=== PATIENT | female | born 1970 | race Caucasian/White ===

== ENCOUNTER 2018-11-27 00:11 | Emergency (ER) | payer BC ==
--- NOTE | 2018-11-27 00:21 | ED Physician Documentation ---
History of Present Illness - Stated complaint Stated Complaint: L LEG SWELLING - Chief complaint Chief Complaint: Neuro - History obtained from History obtained from: Patient, Family - History of Present Illness Timing: How many days ago (3-4) Improved by: nothing Worsened by: no apparent exacerbating factors - Additonal information Additional information: Visiting from [place], flew in on . Patient c/o generalized pain, particularly of all four extremities, dyspnea, episodic confusion and disorien tation, tremulousness that is "worse than usual" (per patient). She says she "was sick before getting on the plane" (she is vague in trying to describe what she means by "sick", but says she had nausea, vomiting. She also says she has had "these episodes" in the past, that she refers to them as "allergies", and that "they usually pass" and thus she has not seen a doctor or been to an ED for these symptoms. She says her hands and feet are swollen, but when we both look at her arms and legs, she acknowledges that they are not swollen and says "well, they were swollen". Review of Systems Constitutional: reports: Myalgias, Fatigue. denies: Fever, Chills, Sweats Eyes: reports: Reviewed and negative Throat: denies: Sore throat Cardiac: reports: Pedal edema (resolved). denies: Chest pain / pressure, Palpitations Respiratory: reports: Dyspnea. denies: Cough, Wheezing : denies: Dysuria, Frequency Skin: denies: Rash Musculoskeletal: reports: Extremity pain (generalized pain/aches, including all four extremities). denies: Neck pain, Back pain Neurologic: reports: Generalized weakness, Confused, Headache. denies: Focal weakness, Numbness, Near syncope, Syncope, Altered mental status, Head injury, LOC Psychiatric: reports: Insomnia. denies: Depressed, Suicidal, Hallucinations, Delusions, Anxiety PD PAST MEDICAL HISTORY - Past Medical History Past Medical History: Yes Other Past Medical History: vertigo - Past Surgical History Past Surgical History: No - Present Medications Home Medications: Ambulatory Orders Medication Instructions Recorded Confirmed Nitrofurantoin Monohyd/M-Cryst 100 mg PO BID #9 capsule 11/27/18 [Macrobid 100 mg Capsule] Sertraline HCl [Zoloft] 100 mg PO DAILY 11/27/18 11/27/18 - Allergies Allergies/Adverse Reactions: Allergies Allergy/AdvReac Type Severity Reaction Status Date / Time No Known Drug Allergies Allergy Verified 11/27/18 00:20 - Living Situation Living Situation: reports: With spouse/s.o. Living Arrangement: reports: At home PD ED PE NORMAL - Vitals Vital signs reviewed: Yes - General General: Alert and oriented X 3, No acute distress, Well developed/nourished - HEENT HEENT: Atraumatic, PERRL, EOMI, Ears normal, Moist mucous membranes, Pharynx benign - Neck Neck: Supple, no meningeal sign, No bony TTP - Cardiac Cardiac: RRR, No murmur, No gallop, No rub - Respiratory Respiratory: No respiratory distress, Clear bilaterally - Abdomen Abdomen: Soft, Non tender - Back Back: No CVA TTP, No spinal TTP - Derm Derm: Normal color, Warm and dry, No rash - Extremities Extremities: No deformity, No tenderness to palpate, Normal ROM s pain, No edema - Neuro Neuro: Alert and oriented X 3, perforator 2-12 intact, No motor deficit, No sensory deficit, Normal speech Eye Opening: Spontaneous Motor: Obeys Commands Verbal: Oriented GCS Score: 15 PD ED PE EXPANDED - Psych Psych: Other (tangential; frequently needs to be redirected/refocused to question being asked) Results - Vitals Vitals: Vital Signs - 24 hr 11/27/18 11/27/18 11/27/18 00:14 01:56 02:52 Temperature 36.5 C Heart Rate 80 81 70 Respiratory 16 20 18 Rate Blood Pressure 111/78 123/78 127/63 O2 Saturation 100 99 99 Oxygen O2 Source Room air - Labs Labs: Laboratory Tests 11/27/18 11/27/18 11/27/18 01:15 01:25 01:25 WBC 6.8 RBC 4.21 Hgb 12.9 Hct 38.1 MCV 90.5 MCH 30.6 MCHC 33.8 RDW 13.2 Plt Count 251 MPV 8.2 Neut # (Auto) 4.0 Lymph # (Auto) 2.2 [place] # (Auto) 0.5 Eos # (Auto) 0.1 Baso # (Auto) 0.0 Absolute Nucleated RBC 0.01 Nucleated RBC % 0.1 Sodium 140 Potassium 2.9 L Chloride 102 Carbon Dioxide 27 Anion Gap 11.0 BUN 15 Creatinine 0.6 Estimated GFR (MDRD) 107 Glucose 96 Calcium 9.1 Phosphorus 3.6 Magnesium 1.8 Total Bilirubin 0.7 AST 36 ALT 34 Alkaline Phosphatase 64 B-Natriuretic Peptide Total Protein 7.4 Albumin 4.1 Globulin 3.3 Albumin/Globulin Ratio 1.2 Lipase 23 TSH Urine Color YELLOW Urine Clarity CLEAR Urine pH 6.0 Ur Specific [place] <=1.005 Urine Protein NEGATIVE Urine Glucose (UA) NEGATIVE Urine Ketones NEGATIVE Urine Occult Blood TRACE-INTA Urine Nitrite NEGATIVE Urine Bilirubin NEGATIVE Urine Urobilinogen 0.2 (NORMAL) Ur Leukocyte Esterase SMALL H Urine RBC 0-5 Urine WBC 6-10 H Ur Squamous Epith Cells FEW Squamous Urine Bacteria Few Ur Microscopic Review INDICATED Urine Culture Comments INDICATED Urine Opiates Screen NEGATIVE Ur Oxycodone Screen NEGATIVE Urine Methadone Screen NEGATIVE Ur Propoxyphene Screen NEGATIVE Ur Barbiturates Screen NEGATIVE Ur Tricyclics Screen NEGATIVE Ur Phencyclidine Scrn NEGATIVE Ur Amphetamine Screen NEGATIVE U Methamphetamines Scrn NEGATIVE U Benzodiazepines Scrn NEGATIVE Urine Cocaine Screen NEGATIVE U Cannabinoids Screen NEGATIVE 11/27/18 11/27/18 01:25 01:25 WBC RBC Hgb Hct MCV MCH MCHC RDW Plt Count MPV Neut # (Auto) Lymph # (Auto) [place] # (Auto) Eos # (Auto) Baso # (Auto) Absolute Nucleated RBC Nucleated RBC % Sodium Potassium Chloride Carbon Dioxide Anion Gap BUN Creatinine Estimated GFR (MDRD) Glucose Calcium Phosphorus Magnesium Total Bilirubin AST ALT Alkaline Phosphatase B-Natriuretic Peptide 18 Total Protein Albumin Globulin Albumin/Globulin Ratio Lipase TSH 3.48 Urine Color Urine Clarity Urine pH Ur Specific [place] Urine Protein Urine Glucose (UA) Urine Ketones Urine Occult Blood Urine Nitrite Urine Bilirubin Urine Urobilinogen Ur Leukocyte Esterase Urine RBC Urine WBC Ur Squamous Epith Cells Urine Bacteria Ur Microscopic Review Urine Culture Comments Urine Opiates Screen Ur Oxycodone Screen Urine Methadone Screen Ur Propoxyphene Screen Ur Barbiturates Screen Ur Tricyclics Screen Ur Phencyclidine Scrn Ur Amphetamine Screen U Methamphetamines Scrn U Benzodiazepines Scrn Urine Cocaine Screen U Cannabinoids Screen - Rads (name of study) chest xray Radiology: Prelim report reviewed, See rad report CT head Radiology: Prelim report reviewed, See rad report PD MEDICAL DECISION MAKING - ED course Complexity details: reviewed results, re-evaluated patient, considered differential, d/w patient, d/w family Departure - Departure Disposition: Home, Self Care Clinical Impression: Hypokalemia, Urinary tract infection Condition: Good Instructions: ED Potassium Deficiency, ED UTI Cystitis Female Follow-Up: [facility] [Provider Group] [facility] [Provider Group] Prescriptions: Nitrofurantoin Monohyd/M-Cryst [Macrobid 100 mg Capsule] 100 mg PO BID #9 capsule Discharge Date/Time: 11/27/18 03:27
[2018-11-27] MEDS ORDERED: SODIUM CHLORIDE 0.9% 500 ML IV STA (01:04)
[2018-11-27 01:22] LABS: MUDS CUTOFF CONCENTRATIONS CUTOFF CONC BELOW:
[2018-11-27 01:34] LABS: BASOPHILS % (AUTO) 0.6 %; EOSINOPHILS # (AUTO) 0.1 10^3/uL (0.0-0.7); EOSINOPHILS % (AUTO) 1.8 %; HGB - HEMOGLOBIN 12.9 g/dL (12.0-16.0); LYMPHOCYTES # (AUTO) 2.2 10^3/uL (1.5-3.5); LYMPHOCYTES % (AUTO) 32.3 %; MEAN CORPUSCULAR HEMOGLOBIN 30.6 pg (27.0-31.0); MEAN CORPUSCULAR HGB CONC 33.8 g/dL (32.0-36.0); MEAN CORPUSCULAR VOLUME 90.5 fL (81.0-99.0); MEAN PLATELET VOLUME 8.2 fL (7.9-10.8); MONOCYTES # (AUTO) 0.5 10^3/uL (0.0-1.0); MONOCYTES % (AUTO) 7.2 %; NEUTROPHILS % (AUTO) 58.1 %; PLT - PLATELET COUNT 251 10^3/uL (130-450); RED BLOOD COUNT 4.21 10^6/uL (4.20-5.40); RED CELL DISTRIBUTION WIDTH 13.2 % (12.0-15.0); WHITE BLOOD COUNT 6.8 x10^3/uL (4.8-10.8)
[2018-11-27 01:52] LABS: ALBUMIN 4.1 g/dL (3.2-5.5); ALBUMIN/GLOBULIN RATIO 1.2 (1.0-2.2); BILIRUBIN,TOTAL 0.7 mg/dL (0.2-1.0); CALCIUM 9.1 mg/dL (8.5-10.3); CREATININE 0.6 mg/dL (0.4-1.0); MAGNESIUM 1.8 mg/dL (1.7-2.8); PHOSPHORUS 3.6 mg/dL (2.5-4.6); TOTAL PROTEIN 7.4 g/dL (6.7-8.2)
--- NOTE | 2018-11-27 02:05 | CT Report ---
Reason: AMS, confused Procedure Date: 11/27/2018 Accession Number: [id number] / [id number] Procedure: CT - HEAD WO CPT Code: FULL RESULT: EXAM: CT HEAD EXAM DATE: 11/27/2018 01:52 AM. CLINICAL HISTORY: AMS, confused. COMPARISON: None. TECHNIQUE: Multiaxial CT images were obtained from the foramen magnum to the vertex. Reformats: Sagittal and coronal. IV contrast: None. In accordance with CT protocol optimization, one or more of the following dose reduction techniques were utilized for this exam: automated exposure control, adjustment of mA and/or KV based on patient size, or use of iterative reconstructive technique. FINDINGS: There is mild patient motion on this exam. Parenchyma: No intraparenchymal hemorrhage. No evidence of mass, midline shift, or CT findings of infarction. Dupont-white differentiation is distinct. Extraaxial Spaces: Normal for age. No subdural or epidural collections identified. Ventricles: Normal in size and position. Sinuses and Orbits: Imaged paranasal sinuses, orbits, and mastoids show no significant abnormality. Bones: No evidence of fracture or calvarial defect. IMPRESSION: No acute intracranial process is identified given mild patient motion on this exam. RADIA
--- NOTE | 2018-11-27 02:14 | XRAY Report ---
Reason: dyspnea Procedure Date: 11/27/2018 Accession Number: [id number] / [id number] Procedure: XR - Chest 2 View X-Ray CPT Code: 51805 FULL RESULT: EXAM: CHEST RADIOGRAPHY EXAM DATE: 11/27/2018 01:30 AM. CLINICAL HISTORY: Dyspnea. COMPARISON: None. TECHNIQUE: 2 views. FINDINGS: Lungs/Pleura: No alveolar consolidation or pleural effusion seen. No pneumothorax. Mediastinum: Heart and mediastinal contours are unremarkable. Other: None. IMPRESSION: 1. No acute abnormality seen in the chest. RADIA
[2018-11-27 02:45] LABS: BILIRUBIN,URINE NEGATIVE (NEGATIVE); GLUCOSE, URINE (UA) NEGATIVE (NEGATIVE); KETONES,URINE (UA) NEGATIVE (NEGATIVE); LEUKOCYTE ESTERASE, URINE SMALL (NEGATIVE); NITRITE,URINE NEGATIVE (NEGATIVE); OCCULT BLOOD,URINE TRACE-INTA (NEGATIVE); PROTEIN,URINE NEGATIVE (NEGATIVE); UROBILINOGEN,URINE 0.2 (NORMAL) E.U./dL (NORMAL)
[2018-11-27 02:48] LABS: CLARITY,URINE CLEAR (CLEAR)
[2018-11-27 02:53] VITALS: BP 127/63
[2018-11-27 02:53] LABS: BACTERIA,URINE Few /HPF (None Seen); RBC,URINE 0-5 /HPF (0-5); SQUAMOUS EPITHELIAL CELL,UR FEW Squamous (<= Few)
[2018-11-27 02:54] LABS: AMPHETAMINE SCREEN,URINE NEGATIVE (NEGATIVE); BENZODIAZEPINES SCREEN, URINE NEGATIVE (NEGATIVE); COCAINE SCREEN URINE NEGATIVE (NEGATIVE); METHADONE SCREEN, URINE NEGATIVE (NEGATIVE); METHAMPHETAMINES SCREEN, URINE NEGATIVE (NEGATIVE); OPIATE SCREEN, URINE NEGATIVE (NEGATIVE); OXYCODONE SCREEN, URINE NEGATIVE (NEGATIVE); PROPOXYPHENE SCREEN, URINE NEGATIVE (NEGATIVE); TRICYCLIC ANTIDEPRESSANT,URINE NEGATIVE (NEGATIVE)
[2018-11-27] MEDS ORDERED: NITROFURANTOIN MACRO 100 MG CAPSULE PO STA (03:09)
[2018-11-27] MEDS ORDERED: POTASSIUM BICARB 25 MEQ TABLET PO STA (03:09)
== END 2018-11-27 03:27 | disposition home or self-care (01) ==
LOC: ED 00:11
DX: E87.6 Hypokalemia (principal); N39.0 Urinary tract infection, site not specified; R41.0 Disorientation, unspecified
CPT/HCPCS: 36415; 70450; 71046; 81001; 83690; 83735; 83880; 84100; 87086; 99283; 99284; A9270; 80053; 80306; 81003; 84443; 85025